=== PATIENT | female | born 1985 | race Caucasian/White ===

== ENCOUNTER 2018-12-25 17:52 | Observation (INO) ==
--- NOTE | 2018-12-25 18:34 | Emergency Department Note ---
Disposition Clinical Impression: Cellulitis Disposition: Home, Self-Care Condition: Good Referrals: Silas Loco, LOG FEEDER [Primary Care Provider] - Forms: ED Satisfaction Letter Time of Disposition: 19:28 Extremity Problem HPI - General Chief complaint: ED Extremity Problem,Nontraumatic Stated complaint: left foot swelling and redness Time Seen by Provider: 12/25/18 18:15 Source: patient Mode of arrival: ambulatory Limitations: no limitations Nursing Notes Reviewed: Yes Vital Signs Reviewed: Yes - History of Present Illness HPI Narrative: Patient states she was seen last night for cellulitis foot. She thought she had been bitten by something. She is given a shot of antibiotic and a prescription and told to get the medications filled and return if it was not getting better. However, she states she was unable to get the medications filled because she has no insurance and she told him this last night. She presents now because the foot is more swollen and red and tender. She denies any fevers. Pt Subjective Complaint: extremity pain, extremity swelling Onset (ago): day(s) (3 days) Consistency: constant Injury Location: left, lower extremity Pain Scale: 7 Quality: burning, stabbing Improves with: nothing Worsens with: nothing Associated symptoms: Reports: denies other symptoms - Related Data Home Medications Medication Instructions Recorded Confirmed No Known Home Drugs 12/25/18 12/25/18 Allergies Allergy/AdvReac Type Severity Reaction Status Date / Time ibuprofen Allergy Difficulty Verified 11/10/18 20:16 Breathing ondansetron Allergy Difficulty Verified 11/10/18 20:16 [From Zofran (as Breathing hydrochloride)] All systems ED: reviewed and negative except as stated. Review of Systems: As Per HPI Constitutional: Denies: fever, chills, weakness, weight change Eyes: Denies: eye pain, eye discharge, vision change ENT ED: Denies: ear pain, throat pain, dental pain, hearing loss, epistaxis, congestion, dysphagia Cardiovascular: Denies: chest pain, palpitations, dyspnea on exertion, edema, syncope Respiratory: Denies: cough, dyspnea, wheezes, hemoptysis, stridor Gastrointestinal: Denies: abdominal pain, nausea, vomiting, diarrhea, constipation, hematemesis, melena, hematochezia Genitourinary: Denies: dysuria, frequency, hematuria, discharge Musculoskeletal: Denies: back pain, neck pain, arthralgia, myalgia Integumentary: Denies: rash, abrasion, lesions Neurological: Denies: headache, weakness, numbness, paresthesias, confusion, abnormal gait, vertigo Psychiatric: Denies: anxiety, depression, suicidal thoughts, homicidal thoughts, auditory hallucinations, visual hallucinations Endocrine: Denies: fatigue Hematological/Lymphatic: Denies: easy bleeding, easy bruising Allergic/Immunologic: Denies: facial swelling, urticaria Past Medical History - Past Medical History Attestation: Yes The following information was validated with the patient. Source: patient, nursing notes reviewed Medical history: Reports: no medical history Surgical history: Reports: non-contributory Psychiatric history: Reports: no psych history - Social History Smoking Status: Current every day smoker Smokeless Tobacco Status: No Alcohol use: Reports: none Drug use: Reports: none Physical Exam - General Limitations: no limitations General appearance: alert, in no apparent distress - Head Head exam: atraumatic, normocephalic, normal inspection - Eye Eye exam: Present: normal appearance, PERRL, EOMI - ENT ENT exam: normal exam, normal oropharynx, mucous membranes moist - Neck Neck exam: Present: normal inspection, full ROM, trachea midline - Chest Chest inspection: Present: normal inspection, symmetric chest wall rise - Respiratory Respiratory exam: Present: normal lung sounds bilaterally - Abdominal Exam Abdominal exam: Present: soft, Non-Tender. Absent: tenderness, distention, guarding, rebound, rigidity - Extremities Exam Extremities exam: Present: tenderness (Left foot shows dorsal edema and erythema up to the mid ankle region. Distal neurovascular status is intact.) - Back Exam Back exam: Present: normal inspection - Neurological Exam Neurological exam: Present: alert, oriented X3 - Psychiatric Psychiatric exam: Present: normal affect, normal mood - Skin Skin exam: Present: warm, dry, intact Course Vital Signs Temperature 97.4 F L 12/25/18 17:54 Pulse Rate 83 12/25/18 17:54 Respiratory Rate 18 12/25/18 17:54 Blood Pressure 132/86 12/25/18 17:54 O2 Sat by Pulse Oximetry 98 12/25/18 17:54 Temperature 97.4 F L 12/25/18 17:54 Pulse Rate 83 12/25/18 17:54 Respiratory Rate 18 12/25/18 17:54 Blood Pressure 132/86 12/25/18 17:54 O2 Sat by Pulse Oximetry 98 12/25/18 17:54 Oxygen Delivery Oxygen Delivery Room Air Extremity Problem, Nontraumati - MDM Narrative Medical decision making narrative: I reviewed the patient's medication list Case was discussed with Dr. Townsend who is graciously accepted admission - Lab Data Lab results reviewed: Yes I reviewed the patient's lab results. Result diagrams: 12/25/18 18:52 12/25/18 18:52 Lab Results 12/25/18 12/25/18 Range/Units 18:52 18:52 WBC 10.7 (4.3-11.1) K/mcL RBC 3.74 L (3.82-4.97) M/mcL Hgb 11.8 (11.5-15.4) g/dL Hct 35.6 (35.3-44.9) % MCV 95.2 (83.0-100.0) fL MCH 31.6 (28.0-33.3) pg MCHC 33.1 (31.6-35.5) g/dL RDW 13.9 (11.5-14.5) % Plt Count 267 (140-400) K/mcL MPV 9.7 (9.4-12.4) fL Immature Gran % 0.6 (0-4) % Seg Neutrophils % 67.2 % Lymphocytes % 19.6 % Monocytes % 8.3 % Eosinophils % 3.6 % Basophils % 0.7 % Neutrophils # 7.2 (1.6-8.9) K/mcL Lymphocytes # 2.1 (0.6-4.6) K/mcL Monocytes # 0.9 (0.0-1.3) K/mcL Eosinophils # 0.4 (0.0-0.6) K/mcL Basophils # 0.1 (0.0-0.2) K/mcL Sodium 141 (136-145) mEq/L Potassium 3.5 (3.5-5.1) mEq/L Chloride 107 (98-107) mEq/L Carbon Dioxide 27 (23-29) mEq/L BUN 14 (6-20) mg/dL Creatinine 0.93 (0.60-1.20) mg/dL Est GFR ( Amer) > 60 (> 60) Est GFR (Non-Af Amer) > 60 (> 60) BUN/Creatinine Ratio 15 (6-26) Glucose 102 (70-105) mg/dL Calculated Osmolality 293 (280-300) Calcium 8.5 L (8.6-10.3) mg/dL - Radiology Data Radiology results reviewed: Yes I reviewed the patient's radiology results.
[2018-12-25] MEDS ORDERED: cefTRIAXone 1,000 MG in 0.9 % Sodium Chloride Mini Bag 100 ML IVPB ONE (18:37)
[2018-12-25] MEDS ORDERED: 0.9 % Sodium Chloride 1,000 ML IVC SCH (18:45)
[2018-12-25 18:58] LABS: Basophils # 0.1 K/mcL (0.0-0.2); Basophils % 0.7 %; Eosinophils # 0.4 K/mcL (0.0-0.6); Eosinophils % 3.6 %; Hematocrit 35.6 % (35.3-44.9); Hemoglobin 11.8 g/dL (11.5-15.4); Immature Granulocytes % 0.6 % (0-4); Lymphocytes # 2.1 K/mcL (0.6-4.6); Lymphocytes % 19.6 %; Mean Corpuscular HGB Conc 33.1 g/dL (31.6-35.5); Mean Corpuscular Hemoglobin 31.6 pg (28.0-33.3); Mean Corpuscular Volume 95.2 fL (83.0-100.0); Mean Platelet Volume 9.7 fL (9.4-12.4); Monocytes # 0.9 K/mcL (0.0-1.3); Monocytes % 8.3 %; Neutrophils # 7.2 K/mcL (1.6-8.9); Platelet Count 267 K/mcL (140-400); Red Blood Count 3.74 M/mcL (3.82-4.97); Red Cell Distribution Width 13.9 % (11.5-14.5); Segmented Neutrophils % 67.2 %
[2018-12-25 19:19] LABS: BUN/Creatinine Ratio 15 (6-26); Blood Urea Nitrogen 14 mg/dL (6-20); Calcium 8.5 mg/dL (8.6-10.3); Carbon Dioxide 27 mEq/L (23-29); Chloride 107 mEq/L (98-107); Glucose 102 mg/dL (70-105); Osmolality,Calculated 293 (280-300); Potassium 3.5 mEq/L (3.5-5.1); Sodium 141 mEq/L (136-145); eGFR For Non-African Americans > 60 (> 60)
[2018-12-25] MEDS ORDERED: *HR* HYDROcodone/Acet 5/325 mg TABLET PO ONE (20:06)
[2018-12-25] MEDS ORDERED: Naloxone 0.4 MG/ML INJ IVP PRN (20:49)
[2018-12-25] MEDS: 0.9 % Sodium Chloride 1,000 ML IVC SCH (21:12)
[2018-12-25] MEDS: *HR* OxyCODONE/APAP 5/325 TABLET PO PRN (21:57)
[2018-12-26] MEDS: 0.9 % Sodium Chloride 1,000 ML IVC SCH (03:33)
[2018-12-26] MEDS: *HR* OxyCODONE/APAP 5/325 TABLET PO PRN ×2 (04:58→09:47)
[2018-12-26 05:43] LABS: Basophils # 0.1 K/mcL (0.0-0.2); Basophils % 0.8 %; Eosinophils # 0.4 K/mcL (0.0-0.6); Eosinophils % 4.9 %; Hematocrit 33.2 % (35.3-44.9); Hemoglobin 11.1 g/dL (11.5-15.4); Immature Granulocytes % 0.7 % (0-4); Lymphocytes # 2.2 K/mcL (0.6-4.6); Lymphocytes % 25.1 %; Mean Corpuscular HGB Conc 33.4 g/dL (31.6-35.5); Mean Corpuscular Hemoglobin 31.9 pg (28.0-33.3); Mean Corpuscular Volume 95.4 fL (83.0-100.0); Monocytes % 11.2 %; Neutrophils # 4.9 K/mcL (1.6-8.9); Platelet Count 245 K/mcL (140-400); Red Blood Count 3.48 M/mcL (3.82-4.97); Red Cell Distribution Width 14.1 % (11.5-14.5); Segmented Neutrophils % 57.3 %
[2018-12-26 06:00] LABS: BUN/Creatinine Ratio 13 (6-26); Blood Urea Nitrogen 11 mg/dL (6-20); Calcium 7.6 mg/dL (8.6-10.3); Carbon Dioxide 24 mEq/L (23-29); Chloride 110 mEq/L (98-107); Glucose 113 mg/dL (70-105); Osmolality,Calculated 292 (280-300); Potassium 3.5 mEq/L (3.5-5.1); Sodium 141 mEq/L (136-145); eGFR For Non-African Americans > 60 (> 60)
--- NOTE | 2018-12-26 10:51 | Internal Med History&Physical ---
Date of Encounter: 12/26/18 Time of Encounter: 10:10 Assessment and Plan (1) Cellulitis Current visit: Yes Status: Acute She was given Rocephin and vancomycin in emergency room. Qualifiers: Site of cellulitis: extremity Site of cellulitis of extremity: lower extremity Laterality: left Qualified Code(s): L03.116 - Cellulitis of left lower limb (2) Tinea pedis Current visit: Yes Status: Acute She will be given a prescription for antifungal cream at discharge. Qualifiers: Laterality: unspecified laterality Qualified Code(s): B35.3 - Tinea pedis Internal Medicine - H&P: HPI Chief complaint: Left foot infection Admitted From: Emergency Dept Plans for Post Hospital Care: Home History of present illness: Ms. Valente is a 33 year old female who came to emergency room complaining of unimproved left foot infection. She reports she had onset of redness and pain in the left foot December 23. She went to a local urgent care the following day and reports receiving IV antibiotic (? Rocephin) and a prescription for Bactrim DS. The following day she did not feel improved so came to [facility] emergency room. She was evaluated and was felt to have worsening cellulitis and was admitted to [facility] floor for ongoing care. She states she generally wears flip-flops and thinks she may have been bitten by a spider that led to her left foot infection. Past Med Surg Social Fam HX - Past Medical History Medical history: no medical history Additional medical history: hernia. ulcers Psychiatric history: no psych history - Past Surgical History Surgical History: non-contributory Additional surgical history: pelvic sx. 3 - Social History Smoking Status: Current every day smoker Packs per day: Less than 1 Smokeless Tobacco Status: No Alcohol use: none Drug use: none - Family History Mother Hx Family Cardiac Disorders: Yes Hx Family Respiratory Disorders: Yes (COPD) Internal Medicine - H&P: Meds No Known Home Drugs 12/25/18 [History] Allergy/AdvReac Type Severity Reaction Status Date / Time ibuprofen Allergy Difficulty Verified 11/10/18 20:16 Breathing ondansetron Allergy Difficulty Verified 11/10/18 20:16 [From Zofran (as Breathing hydrochloride)] All Systems PM: A 10-system review of systems was performed and is negative for pertinent findings except as documented above in the HPI. Review of systems: Gen.: She states her weight has increased 30-40 pounds in the past year Cardiovascular: She denies hypertension MS heart failure angina DVT or pulmonary embolus Respiratory: She has smoked since age 13 up to 1-1/2 packs per day. She denies chronic lung disease and does not use home oxygen. She has not been tested for sleep apnea. GI: She denies disorders of her liver gallbladder or exocrine pancreas : She denies hematuria dysuria or kidney stones Neurologic: She denies large distribution strokes or seizures. Endocrine: She denies diabetes thyroid disease or hyperlipidemia Hematology/oncology: She has history of anemia. She denies internal malignancies or other blood disorders Psychiatric: She denies anxiety depression other mental health issues [place] skeletal: She denies arthritis gout or other bone joint or muscle disorders. - Constitutional Vitals: Temp Pulse Resp BP Pulse Ox 98.3 F 74 18 106/69 96 12/26/18 08:39 12/26/18 08:39 12/26/18 08:39 12/26/18 08:39 12/26/18 08:39 Exam: Gen.: She is a well-developed well-nourished female lying in bed who appears in no acute distress HEENT: Head is atraumatic and normocephalic. Eyes: EOMI. There is no scleral icterus. Mouth: Mucosa is moist. Neck: Supple and nontender. There is no thyromegaly or adenopathy noted. Heart: Regular without murmurs gallops or ectopics Lungs: No wheezes or crackles are heard. Abdomen: Soft and nontender. No masses or guarding are noted. Extremities: The left forefoot has area of redness in the distal dorsal area. An ink line presumably outlining boundaries of erythema is present. The erythema has regressed from the ink line. The right leg is unremarkable. She has tinea pedis in the interdigital area of second and third, third and fourth, and fourth and fifth toes Neurologic: Mental status: She is talkative and a good historian. Cranial nerves: Smile is symmetric. Forehead wrinkles bilaterally. Tongue protrudes m idline. EOMI. Motor: There is no pronator drift. Cerebellar: Finger to nose is intact bilaterally. Skin: Warm and dry Internal Med - H&P Results - Labs CBC & Chem 7: 12/26/18 04:52 12/26/18 04:52 Labs: Short CBC 12/25/18 12/26/18 Range/Units 18:52 04:52 WBC 10.7 8.6 (4.3-11.1) K/mcL Hgb 11.8 11.1 L (11.5-15.4) g/dL Hct 35.6 33.2 L (35.3-44.9) % Plt Count 267 245 (140-400) K/mcL Neutrophils # 7.2 4.9 (1.6-8.9) K/mcL BMP 12/25/18 12/26/18 18:52 04:52 Sodium 141 141 Potassium 3.5 3.5 Chloride 107 110 H Carbon Dioxide 27 24 BUN 14 11 Creatinine 0.93 0.87 Glucose 102 113 H Calcium 8.5 L 7.6 L - Impressions ITS Impressions Foot X-Ray 12/25/18 19:26 IMPRESSION: 1. Nonspecific diffuse subcutaneous edema. 2. No acute osseous abnormality or radiographic evidence for osteomyelitis. D/ / Luke Pang MD / Luke Pang MD Interpreting Provider: Luke Pang MD
[2018-12-26 10:55] VITALS: BP 113/76
--- NOTE | 2018-12-26 11:03 | Discharge Summary ---
Orders not resulted at time of discharge: Pending orders 12/25/18 19:05 Culture,Blood [BC] Stat 12/27/18 09:30 Vancomycin,Trough Timed Date of Encounter: 12/26/18 Time of Encounter: 10:10 - Discharge Diagnosis (1) Cellulitis Priority: Primary Status: Acute Qualifiers: Site of cellulitis: extremity Site of cellulitis of extremity: lower extremity Laterality: left Qualified Code(s): L03.116 - Cellulitis of left lower limb (2) Tinea pedis Priority: Secondary Status: Acute Qualifiers: Laterality: unspecified laterality Qualified Code(s): B35.3 - [facility] course: Ms. Valente is a 33 year old female who came to emergency room complaining of unimproved left foot infection. She reports she had onset of redness and pain in the left foot December 23. She went to a local urgent care the following day and reports receiving IV antibiotic (? Rocephin) and a prescription for Bactrim DS. The following day she did not feel improved so came to [facility] emergency room. She was evaluated and was felt to have worsening cellulitis and was admitted to [facility] for ongoing care. Initial orders were written by the emergency room physician. I saw her on December 26 and performed the history physical and discharge. She was given Rocephin and vancomycin in emergency room. When I saw her she stated the erythema had decreased and the pain had slightly lessened. She wished to be discharged home which I felt was reasonable. She will continue with prescription for Bactrim DS given her at the urgent care the evening of December 24. She does not know the quantity given. I gave her lactobacillus prescription. She will also be given topical antifungal cream econazole for tinea pedis. She will follow with her PCP Silas Loco CNP within 1 week. I encouraged her to become a nonsmoker. - Time Spent with Patient Total time spent providing and/or coordinating discharge services: - Discharge Medications Prescriptions: New Lactobacillus [Culturelle] 1 each PO BID #14 cap.sprink Econazole Nitrate 15 gm TP BID #1 cream..g. Home Medications: Econazole Nitrate 15 gm TP BID #1 cream..g. 12/26/18 [Rx] Lactobacillus [Culturelle] 1 each PO BID #14 cap.sprink 12/26/18 [Rx] Allergies/Adverse Reactions: Allergy/AdvReac Type Severity Reaction Status Date / Time ibuprofen Allergy Difficulty Verified 11/10/18 20:16 Breathing ondansetron Allergy Difficulty Verified 11/10/18 20:16 [From Zofran (as Breathing hydrochloride)] Date of admission: 12/25/18 20:25 Primary care physician: Silas Loco CNP - Constitutional Vitals: Temp Pulse Resp BP Pulse Ox 98.2 F 80 18 113/76 97 12/26/18 10:54 12/26/18 10:54 12/26/18 10:54 12/26/18 10:54 12/26/18 10:54 - Patient Status Disposition: Home, Self-Care Condition: Good - Discharge Instructions Follow Up With: Silas Loco CNP [Primary Care Provider] - 1 week - Diet and Activity Activity: resume usual activities as tolerated Diet: advance to your usual diet
== END 2018-12-26 13:03 | disposition home or self-care (01) ==
LOC: INPPIK 17:52 → EMEROOPIK 17:52 → INPPIK 20:44
PROVIDERS: ADMIT Internal Medicine; ATTEND Internal Medicine